=== PATIENT | male | born 1955 | race Caucasian/White ===

== ENCOUNTER 2018-08-27 10:22 | Inpatient (IN) | payer OTHER ==
[~2018-08-27] VITALS: Ht 175.3 cm; Wt 146.1 kg
[~2018-08-27 10:22] MED LIST: ASPIRIN EC325 M1 PO; HUMERA; LISINOPRIL5 MG PO; LOPRESSOR25 PO
[2018-08-27 10:31] VITALS: BP 169/95
--- NOTE | 2018-08-27 10:34 | NUR ---
ARRIVED TO ED WITH IV IN PLACE FROM STRESS TEST
[2018-08-27 10:52] LABS: ABSOLUTE EOSINOPHILS 0.2 thou/uL (0.0-0.7); ABSOLUTE LYMPHOCYTES 1.4 thou/uL (0.8-5.3); ABSOLUTE MONOCYTES 0.6 thou/uL (0.0-1.2); ABSOLUTE NEUTROPHILS 4.3 thou/uL (1.6-8.1); BASOPHILS 0.7 %; HEMATOCRIT 46.7 % (42.0-52.0); HEMOGLOBIN 15.9 gm/dL (14.0-18.0); LYMPHOCYTES 21.3 %; MCH 32.8 pg (26.0-34.0); MCV 96.5 fL (80.0-100.0); MONOCYTES 9.6 %; MPV 7.9 fl. (7.2-11.1); NUCLEATED RBCS 0 /100WBC; PLATELET COUNT* 229 thou/uL (150-400); POLYS 65.4 %; RBC 4.84 mil/uL (4.50-6.00); RDW-CV 13.6 % (10.5-14.5); WBC 6.6 thou/uL (4.0-11.0)
[2018-08-27 11:00] LABS: APTT 29.4 Seconds (25.0-31.3); PROTIME 10.5 Seconds (9.20-11.50)
[2018-08-27 11:04] LABS: ANION GAP 8 mmol/L (7-16); BUN 16 mg/dL (7-18); CALCIUM 8.8 mg/dL (8.5-10.1); CHLORIDE 104 mmol/L (98-107); CO2 29 mmol/L (21-32); GLUCOSE 130 mg/dL (70-99); POTASSIUM 3.9 mmol/L (3.5-5.1); SODIUM 141 mmol/L (136-145)
[2018-08-27 11:15] LABS: ALBUMIN 3.4 g/dL (3.4-5.0); ALKALINE PHOSPHATASE 67 U/L (46-116); LIPASE 254 U/L (73-393); MAGNESIUM 1.8 mg/dL (1.8-2.4); NT-PRO BRAIN NAT PEPTIDE 983 pg/mL (<300); SGOT 28 U/L (15-37); SGPT 57 U/L (30-65); TOTAL BILIRUBIN 0.6 mg/dL (<0.1-1.0); TOTAL PROTEIN 6.9 g/dL (6.4-8.2); TROPONIN-I LEVEL <0.06 ng/mL (<0.06)
[2018-08-27 15:15] VITALS: BP 120/83
[2018-08-27 15:26] VITALS: BP 125/78
[2018-08-27 16:00] VITALS: BP 122/78
--- NOTE | 2018-08-27 16:01 | EKG ---
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: : 1955 Requested By: Juan Kidd Order Number: [id number] MD: Rachel Figueroa Measurements Intervals [place] Rate: 115 P: ME: QRS: -9 QRSD: 93 T: 84 QT: 320 QTc: 443 Interpretive Statements Atrial fibrillation with PVC Baseline wander in lead(s) V2 Compared to ECG 02/02/2012 06:00:08 Sinus bradycardia no longer present T-wave abnormality no longer present Electronically Signed On 08-27-2018 16:00:52 FELTING MACHINE OPERATOR HELPER by Rachel Figueroa [email or web address] <ELECTRONICALLY SIGNED> By: Rachel Figueroa MD, FACC 08/27/18 1600 1028 1028 Rachel Figueroa MD, [facility] /EPI
--- NOTE | 2018-08-27 18:05 | NUR ---
ADMISSION ASSESSMENT AND HISTORY COMPLETED REFER TO COMPUTER CHARTING. 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 BED IN LOW AND LOCKED POSITION. CALL LIGHT WITHIN REACH. IV SALINE LOCKED. ON ROOM AIR. PATIENT REPORTING NO QUESTIONS OR CONCERNS AT THIS TIME. CALL LIGHT WITHIN REACH. WILL CONTINUE TO MONITOR.
[2018-08-27 20:00] VITALS: BP 128/88
[2018-08-27 23:16] VITALS: BP 117/78
[2018-08-28 04:39] VITALS: BP 114/64
--- NOTE | 2018-08-28 04:44 | NUR ---
PATIENT PARTIALLY PROGRESSING TOWARDS GOALS: HEART RATE EFFECTIVELY CONTROLLED WITH PO SOTALOL AND DILTIAZEM, ALTHOUGH PATIENT REMAINS IN AFIB. BLOOD PRESSURE TOLERATING WELL AND REMAINS WNL. PATIENT DENIES ANY PAIN AND DISCOMFORT. PATIENT HAS BEEN ON HOME CPAP THROUGHOUT NIGHT. HOURLY ROUNDING OBSERVED. CALL LIGHT WITHIN REACH
[2018-08-28 05:24] LABS: CHOLESTEROL 221 mg/dL (<200); HDL CHOLESTEROL 37 mg/dL (>40); LDL CHOLESTEROL 153 mg/dL (<100); TRIGLYCERIDE 159 mg/dL (<150); VLDL 32 mg/dL (<40)
[2018-08-28 05:25] LABS: SERUM ASSESSMENT Clear
[2018-08-28 07:35] VITALS: BP 109/67
[2018-08-28 07:39] VITALS: BP 109/67
--- NOTE | 2018-08-28 10:01 | EKG ---
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 : 1955 Requested By: Rachel Figueroa Order Number: [id number] MD: Obey Villegas Measurements Intervals [employer] Rate: 73 P: DE: QRS: -11 QRSD: 91 T: 55 QT: 419 QTc: 462 Interpretive Statements Atrial fibrillation Low voltage, precordial leads Compared to ECG 08/27/2018 10:28:44 Low QRS voltage now present Ventricular premature complex(es) no longer present Electronically Signed On 08-28-2018 10:01:14 BILINGUAL KINDERGARTEN TEACHER by Obey Villegas [email or web address] <ELECTRONICALLY SIGNED> By: Obey Villegas MD, FACC 08/28/18 1001 0758 0758 Obey Villegas MD, [facility] /EPI
--- NOTE | 2018-08-28 10:42 | NUR ---
MET WITH PT TO DISCUSS HOME SITUATION/DC PLANNING. PT LIVES , IS INDEPENDENT AND ACTIVE. HE WEARS A CPAP AT NIGHT. PT DENIES NEEDS, STATES HE KNOWS HE NEEDS TO ADJUST HIS DIET AT DC. DENIES ANY NEEDS. WILL FOLLOW
[2018-08-28 11:30] VITALS: BP 108/73
--- NOTE | 2018-08-28 12:19 | NUR ---
ASSESSMENT COMPLETED REFER TO COMPUTER CHARTING. 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 BED IN LOW AND LOCKED POSITION. CALL LIGHT WITHIN REACH. PATIENT REPORTING NO PAIN, NAUSEA OR SHORTNESS OF BREATH. IV SALINE LOCKED. ON ROOM AIR. WILL CONTINUE TO MONITOR THIS SHIFT.
--- NOTE | 2018-08-28 15:00 | 2DMMODE ---
[place] [address] 2 D/M-MODE ECHOCARDIOGRAM Name: RACHEL MCGOWAN Room: [address] ADM IN [facility]#: [id number] Admission: 08/27/18 Attend Phys: Mk Zelaya Discharge: Date of : 51 Date of Service: 08/28/18 1500 Report #: [id number] THIS REPORT FOR: //name// APPROVED REPORT Study performed: 08/28/2018 11:39:33 EXAM: Comprehensive 2D, Doppler, and color-flow Echocardiogram Patient Location: In-Patient Room #: 229 Status: routine BSA: 2.49 HR: 63 bpm BP: 109/67 mmHg Rhythm: Atrial Fibrillation Other Information Study Quality: Good Indications Atrial Fibrillation 2D Dimensions IVSd: 12.83 (7-11mm) LVOT Diam: 21.43 (18-24mm) LVDd: 58.39 mm PWd: 12.79 (7-11mm) Ascending Ao: 34.79 (22-36mm) LVDs: 50.51 (25-40mm) Aortic Root: 30.07 mm Volumes Left Atrial Volume (Systole) LA ESV Index: 51.20 mL/m2 Aortic Valve AoV Peak John.: 1.45 m/s AO Peak Gr.: 8.41 mmHg LVOT Max P.40 mmHg AO Mean Gr.: 5.27 mmHg LVOT Mean P.00 mmHg LVOT Max V: 0.92 m/s AO V2 VTI: 28.81 cm LVOT Mean V: 0.67 m/s MAEGAN (VTI): 2.40 cm2 LVOT V1 VTI: 19.17 cm Mitral Valve MV Decel. Time: 185.40 ms MV PHT: 53.76 ms MVA (PHT): 4.09 [place]2 [place] [address] 2 D/M-MODE ECHOCARDIOGRAM Name: RACHEL MCGOWAN Room: [address] IN .R.#: [id number] Admission: 08/27/18 Attend Phys: Mk Zelaya Discharge: Date of : 51 Date of Service: 08/28/18 1500 Report #: [id number] TDI Medial E' John.: 0.11 m/s Lateral E' John.: 0.15 m/s Pulmonary Valve PV Peak John.: 0.87 m/s PV Peak Gr.: 3.01 mmHg Tricuspid Valve RAP Estimate: 10.00 mmHg TR Peak Gr.: 22.95 mmHg RVSP: 33.00 mmHg PA Pressure: 33.00 mmHg Left Ventricle Left ventricle is mildly dilated. There is global hypokinesis of the left ventricle. Mild concentric left ventricular hypertrophy. Left ventricular systolic function is moderately decreased. LVEF is 40-45%. This study is not technically sufficient to allow evaluation of the LV diastolic function due to atrial fibrillation. Right Ventricle The right ventricle is normal size. The right ventricular systolic function is normal. Atria Left atrium is severely dilated. The right atrium size is normal. Aortic Valve Mild aortic valve sclerosis. No aortic regurgitation is present. There is no aortic valvular stenosis. Mitral Valve There is mitral annular calcification. Mild mitral regurgitation. No evidence of mitral valve stenosis. Tricuspid Valve The tricuspid valve is normal in structure. Trace tricuspid regurgitation. Mild pulmonary hypertension. Pulmonic Valve The pulmonary valve is normal in structure. Trace pulmonic regurgitation. Great Vessels The aortic root is normal in size. [place] [address] 2 D/M-MODE ECHOCARDIOGRAM Name: RACHEL MCGOWAN Room: [address] IN [facility].#: [id number] Admission: 08/27/18 Attend Phys: Mk Zelaya Discharge: Date of : 51 Date of Service: 08/28/18 [facility] Report #: [id number] Pericardium There is no pericardial effusion. <Conclusion> Left ventricle is mildly dilated. LVEF is 40-45%. There is global hypokinesis of the left ventricle. Left atrium is severely dilated. There is no aortic valvular stenosis. No aortic regurgitation is present. Mild mitral regurgitation. There is no aortic valvular stenosis. No aortic regurgitation is present. There is mitral annular calcification. <ELECTRONICALLY SIGNED> By: Obey Villegas MD, FACC 08/28/181499 99 99 Obey Villegas MD, FACC /INF
[2018-08-28 15:59] VITALS: BP 115/88
[2018-08-28 19:08] LABS: GLYCOHEMOGLOBIN (HGB A1C) 5.8 % (4.8-5.6)
[2018-08-28 20:00] VITALS: BP 148/79
[2018-08-29] VITALS (14 sets, daily range): BP systolic 112–153; BP diastolic 60–108
--- NOTE | 2018-08-29 14:32 | EKG ---
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1955 Requested By: Rachel Figueroa Order Number: [id number] Leigh MD: Rachel Figueroa Measurements Intervals [place] Rate: 73 P: MS: QRS: -15 QRSD: 97 T: 65 QT: 411 QTc: 453 Interpretive Statements Atrial fibrillation Borderline left axis deviation Compared to ECG 08/28/2018 07:58:36 No significant changes Electronically Signed On 08-29-2018 14:31:49 ASSOCIATE PROFESSOR OF BIBLICAL STUDIES by Rachel Figueroa [email or web address] <ELECTRONICALLY SIGNED> By: Rachel Figueroa MD, [facility] 08/29/18 1431 9 9 Rachel Figueroa MD, FACC /EPI
--- NOTE | 2018-08-29 17:54 | NUR ---
RECEIVED REPORT FROM MAYA AND ASSUME CARE OF PT AT 0700. ASSESSMENT COMPLETED CHARTED. VSS. PT HAD MARÍA AND CARDIOVERSION TODAY HAS REMAIN IN SINUS RHYTHM SINCE. PT STATED HE WANTED TO GO HOME TH PHYSICIAN WANTED HIM TO STAY DUE TO INCREASE SEDIATION DURING PROCEDURE AND NEED FOR SOTALOL LOAD. IV PATENT AND SALINE LOCKED. AMBULATING IN ROOM AD ANALIA. HOURLY ROUNDING PERFORMED FOR PT SAFETY. CALL LIGHT WITHIN REACH. ANTICIPATE DISCHARGE TOMORROW. WILL CONTINUE TO MONITOR FOR REMAINDER OF SHIFT.
--- NOTE | 2018-08-29 18:08 | TEE ---
[place] [address] TRANSESOPHAGEAL ECHOCARDIOGRAM Name: RACHEL MCGOWAN Room: [address] IN [facility]#: [id number] Admission: 08/27/18 Attend Phys: Mk Zelaya Discharge: Date of : 51 Date of Service: 08/29/18 1808 Report #: [id number] THIS REPORT FOR: //name// APPROVED REPORT Study performed: 08/29/2018 09:59:24 EXAM: Transesophageal Echocardiogram Patient Location: In-Patient Room #: 229 Status: routine BSA: 2.49 HR: 79 bpm BP: 126/83 mmHg Rhythm: Atrial Fibrillation Other Information Study Quality: Excellent Indications Atrial Fibrillation Echo Enhancing Agent Indication: Rule out Shunt Agent(s) / Amount(s) Used: Agitated Saline 20 cc Procedure After obtaining informed consent, patient underwent transesophageal echo in the [facility] [employer]. Type of Sedation : Conscious Sedation Sedation was administered by Bertha Rubalcava RN. Sedation start time: 1207 Case end Time: Sedation was achieved intravenously with: Versed (6) Fentanyl (50) Transesophageal probe was inserted and advanced into esophagus without difficulty by Rachel Figueroa MD, FACC. Echo enhancement indication: R/O Septal defect. Echo enhancement agent administered: Agitated Saline The MARÍA was performed without complications. Synchronized Cardioversion acheived with 300 Joules after 1 attempt(s). Rhythm following Synchronized Cardioversion: Normal Sinus Rhythm Throughout the procedure, the blood pressure, pulse oximetry, cardiac rhythm, and rate were monitored. The patient tolerated the procedure without adverse effects. Recovery [address] [address] TRANSESOPHAGEAL ECHOCARDIOGRAM Name: RACHEL MCGOWAN Emi Room: [address] IN [facility].#: [id number] Admission: 08/27/18 Attend Phys: Mk Zelaya Discharge: Date of : 51 Date of Service: 08/29/18 1808 Report #: [id number] from conscious sedation was uneventful and vital signs were stable. Left Ventricle Left ventricle is mildly dilated. There is global hypokinesis of the left ventricle. There is normal left ventricular wall thickness. Left ventricular systolic function is moderately decreased. LVEF is 30-35%. Right Ventricle The right ventricle is normal size. The right ventricular systolic function is normal. Atria Left atrium is moderately dilated. No thrombus is visualized in the left atrium or appendage. Interatrial septum is intact without evidence of ASD or PFO. The right atrium size is normal. Aortic Valve Mild aortic valve sclerosis. No aortic regurgitation is present. There is no aortic valvular stenosis. Mitral Valve The mitral valve is normal in structure. Mild to moderate mitral regurgitation. No evidence of mitral valve stenosis. Tricuspid Valve The tricuspid valve is normal in structure. Trace tricuspid regurgitation. Pulmonic Valve The pulmonary valve is normal in structure. There is no pulmonic valvular regurgitation. Great Vessels The aortic root is normal in size. Pericardium There is no pericardial effusion. <Conclusion> LVEF is 30-35%. Left atrium is moderately dilated. No thrombus is visualized in the left atrium or appendage. Interatrial septum is intact without evidence of [place] [address] TRANSESOPHAGEAL ECHOCARDIOGRAM Name: RACHEL MCGOWAN Room: [address] IN M.R.#: [id number] Admission: 08/27/18 Attend Phys: Mk Zelaya Discharge: Date of : 51 Date of Service: 08/29/181807 Report #: [id number] Mild to moderate mitral regurgitation. successful cardioversion of a fib to nsr <ELECTRONICALLY SIGNED> By: Rachel Figueroa MD, FACC 08/29/181807 07 07 Rachel Figueroa MD, FACC /INF
[2018-08-30] VITALS: BP 138/87
[2018-08-30 04:00] VITALS: BP 144/93
--- NOTE | 2018-08-30 05:38 | NUR ---
PT CARE ASSUMED AT 1930. SAT MAINTAINED IN CPAP. CALL LIGHT WITHIN REACH AND BED IN LOW POSITION. ALERT AND ORINTED X 4. SR WITH PACS ON THE MONITOR. DENIES ANY CHEST PAIN AND SOB AT THIS NIGHT. WILL CONTINUE TO MONITOR.
[2018-08-30 07:45] VITALS: BP 129/82
--- NOTE | 2018-08-30 08:01 | NUR ---
ASSUMED PT. CARE AND RECEIVED REPORT AT 0730. PT A/OX4, VSS, MONITOR ON TRACING SB 58. PT. DENIES CURRENT PAIN/SOB, ON RA. FULL ASSESSMENT COMPLETED, REFER TO CHARTING. ANTICIPATE DC TODAY ONCE SEEN BY CV, PT WANTS TO DC. PT. UP TO RECLINER AT THIS TIME, TOLERATING WELL. CALL LIGHT IN REACH, WILL CONTINUE WITH PLAN OF CARE.
[2018-08-30 08:22] VITALS: BP 129/82
[2018-08-30] MEDS ORDERED: XARELTO10 MG PO (10:19)
[2018-08-30] MEDS ORDERED: SORINE 80 MG TA80 M1 PO (10:19)
[2018-08-30] MEDS ORDERED: SPIRONOLACTONE25 M1 PO (10:20)
--- NOTE | 2018-08-30 12:06 | NUR ---
DC ORDERS RECEIVED. IV AND MONITOR REMOVED. PT. LET VIA WHEELCHAIR TO RETURN HOME IN PERSONAL VEHICLE, ALL BELONGINGS ACCOUNTED FOR. PT. GIVEN DC INSTRUCTIONS, SCRIPTS, AND CARENOTES, ALL QUESTIONS ANSWERED.
--- NOTE | 2018-09-03 13:08 | CON ---
[address] [address] CONSULTATION Name: RACHEL MCGOWAN Room: [address] IN M.R.#: [id number] Admission: 08/27/18 Attend Phys: Emi Arshad Discharge: 08/30/18 Date of : 51 Report #: [id number] THIS REPORT FOR: //name// CC: Rolando Zelaya DATE OF SERVICE: 08/27/2018 HISTORY OF PRESENT ILLNESS: The patient is a 62-year-old white male who I was asked to see in the hospital today after he was noted to be in atrial fibrillation. The history is obtained from the patient. There are no old records. He does have a long history of hypertension and hyperlipidemia. He is not very active and is overweight. He is 5 feet 9 inches and weighs 310 pounds. He does have sleep apnea, uses CPAP. He apparently had a heart catheterization almost 10 years ago at [facility] that showed no significant coronary artery disease. Recently, he complained of fatigue and shortness of breath. He saw his primary care physician who noticed an irregular heartbeat. Dr. Yang ordered a nuclear stress test. When he arrived from the nuclear stress test today as an outpatient, he was noted to be in atrial fibrillation. I recommended that he be admitted for further evaluation and treatment. He denies any chest pain, swelling of his feet, palpitations, syncope, lightheadedness. PAST MEDICAL HISTORY: He has had previous prostate surgery for cancer followed by radiation therapy. He has had knee arthroscopy, hypertension, hyperlipidemia. MEDICATIONS: Include lisinopril and aspirin. ALLERGIES AND INTOLERANCES: He could tolerate LIPITOR in the past because it made his legs ache. FAMILY HISTORY: His brother had a stent. SOCIAL HISTORY: He is . He and his live in [place], [place]. 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 No smoking. Rarely drinks alcohol. REVIEW OF SYSTEMS: He has no history of stroke, asthma, GI bleeding, liver disease, kidney disease, chronic skin condition or psychiatric illness. PHYSICAL EXAMINATION: GENERAL: Revealed a large middle-aged male, who appeared in no distress. VITAL SIGNS: He had a blood pressure of 140/90, pulse was originally 120. He is afebrile. HEENT: He is anicteric. Conjunctivae pink. [place]ucous [place] [address] CONSULTATION Name: RACHEL MCGOWAN Room: [address]#: [id number] Admission: 08/27/18 Attend Phys: Emi Arshad Discharge: 08/30/18 Date of : 51 Report #: [id number] NECK: Veins do not appear distended. No carotid bruits. Neck supple. CHEST: Clear to auscultation. CARDIAC: Irregular rhythm. ABDOMEN: Obese, soft, nontender. EXTREMITIES: Had no edema. Dorsalis pedis pulse 1+ bilaterally. SKIN: Warm, dry. NEUROLOGIC: Nonfocal. DIAGNOSTIC DATA: His ECG on admission this morning showed atrial fibrillation with an increased ventricular response rate. His workup in the Emergency Room today, he had portable chest x-ray that showed cardiomegaly, otherwise clear lung urbina. LABORATORY DATA: He had lab work today. Sodium 141, creatinine 1.0. Liver function studies were normal. Troponin 0.06. BNP 983. White blood cell count 6.6, hemoglobin 15.9. IMPRESSION AND RECOMMENDATIONS: 1. Atrial fibrillation. Onset unclear. I suspect this is why the patient is short of breath and fatigued. Recommend starting antiarrhythmic therapy. If he fails to convert, I would consider MARÍA and cardioversion. I would recommend anticoagulation because of his history of hypertension. 2. Hypertension. The patient has been on BETSY inhibitor. 3. Obesity. 4. Sleep apnea. <ELECTRONICALLY SIGNED> By: Rachel Figueroa MD, FACC 09/03/18 1308 1636 [id number] Figueroa MD, FACC /nt
== END 2018-08-30 12:18 | disposition home or self-care (01) | DRG 308 ==
LOC: M.ERS 10:22 → M.TBA-ER 11:37 → M.2W 11:37
PROVIDERS: Emergency Medicine Emergency Medical Services; Internal Medicine Cardiovascular Disease; ADMIT Internal Medicine
PROC: B24BZZ4 Ultrasonography of Heart with Aorta, Transesophageal (ICD-10-PCS; principal; 2018-08-27)
PROC: 5A2204Z Restoration of Cardiac Rhythm, Single (ICD-10-PCS; 2018-08-27)
DX: I48.91 Unspecified atrial fibrillation (principal); I50.31 Acute diastolic (congestive) heart failure; Z68.42 Body mass index [BMI] 45.0-49.9, adult; I11.0 Hypertensive heart disease with heart failure; E66.9 Obesity, unspecified; E78.5 Hyperlipidemia, unspecified; G47.33 Obstructive sleep apnea (adult) (pediatric); E78.00 Pure hypercholesterolemia, unspecified; Z82.49 Family history of ischemic heart disease and other diseases of the circulatory system; Z79.899 Other long term (current) drug therapy